=== PATIENT | male | born 1975 | race Two or more races ===

== ENCOUNTER 2018-06-04 16:13 | Emergency (ER) | payer SELFPAY ==
[~2018-06-04] VITALS: Ht 180.3 cm; Wt 114.0 kg
[2018-06-04 16:21] VITALS: BP 138/101
[2018-06-04] MEDS ORDERED: ASPIRIN 325MG EC TABLET PO ONE (18:45)
== END 2018-06-04 19:32 | disposition left against medical advice (07) ==
LOC: ER 16:13
DX: R07.89 Other chest pain (principal); Z88.6 Allergy status to analgesic agent; Z88.0 Allergy status to penicillin
CPT/HCPCS: 93005; 99283